=== PATIENT | female | born 1950 | race Caucasian/White ===

== ENCOUNTER 2018-08-15 06:23 | Observation (INO) | payer MEDICARE ==
[2018-08-15] MEDS ORDERED: Sodium Chloride 0.9% 10 ML ONE (06:32)
[2018-08-15 07:26] LABS: #Basophils 0.1 thou/uL (0.0-0.2); #Eosinphils 0.3 thou/uL (0.0-0.7); #Lymphocytes 3.3 thou/uL (1.20-3.40); #Monocytes 0.7 thou/uL (0.11-0.59); #Neutrophils 4.2 thou/uL (1.40-6.50); %Basophils 0.8 % (0.0-1.0); %Eosinophils 3.6 % (0.0-10.0); %Lymphocytes 38.6 % (21.0-51.0); %Monocytes 7.9 % (0.0-10.0); Hemoglobin 13.8 g/dL (12.0-16.0); Mean Corpuscular HGB CONC 33.5 g/dL (32.0-36.0); Mean Corpuscular Volume 89.5 fL (78.0-98.0); Platelet Count 208 thou/uL (130-400); RBC Distribution Width 12.2 % (11.5-14.5); Red Blood Cell (RBC) Count 4.62 mill/uL (4.20-5.40); White Blood Cell (WBC) Count 8.6 thou/uL (4.8-10.8)
[2018-08-15 07:45] LABS: Anion Gap 14 mmol/L (10-20); BUN (Urea Nitrogen) 14 mg/dL (9.8-20.1); Calc. Creatinine Clearance 80 mL/min (70-130); Calcium 10.1 mg/dL (7.8-10.44); Carbon Dioxide 28 mmol/L (23-31); Chloride 103 mmol/L (98-107); Estimated GFR-MDRD 69; Glucose 117 mg/dL (80-115); Potassium 4.9 mmol/L (3.5-5.1); Sodium 140 mmol/L (136-145)
[2018-08-15] MEDS ORDERED: Fentanyl 100 MCG/2 ML VIAL ONE ×4 (08:38→11:18)
[2018-08-15] MEDS ORDERED: Promethazine HCl 25 MG/ML VIAL SLOW IVP PRN (09:53)
[2018-08-15] MEDS ORDERED: Ondansetron HCl/PF 4 MG/2 ML Vial IVP PRN (09:53)
[2018-08-15] MEDS ORDERED: Promethazine HCl 25 MG/ML VIAL IM PRN (09:53)
[2018-08-15] MEDS ORDERED: Ondansetron PF 4 MG/2 ML Vial ONE (12:18)
[2018-08-15] MEDS ORDERED: Lidocaine 1% PF 5 ML VIAL ONE (12:18)
[2018-08-15] MEDS ORDERED: Rocuronium Bromide 10 MG/ML (10ML VIAL) ONE (12:18)
[2018-08-15] MEDS ORDERED: Glycopyrrolate 0.2 MG/ML 5 ML SYRINGE ONE (12:18)
[2018-08-15] MEDS ORDERED: Ketorolac Tromethamine 30 MG/ML VIAL ONE (12:18)
[2018-08-15] MEDS ORDERED: PROPOFOL 200 MG/20 ML VIAL ONE (12:18)
[2018-08-15] MEDS ORDERED: Dexamethasone 20 MG/5 ML VIAL ONE (12:18)
[2018-08-15] MEDS ORDERED: PHENYLEPHRINE-NS 100 MCG/ML 10 ML SYRINGE ONE (12:18)
--- NOTE | 2018-08-15 12:57 | OP ---
DATE OF PROCEDURE: 08/15/2018 SPECIAL EQUIPMENT TECHNICIAN: Elias Lopez PA-C. PROCEDURES PERFORMED: Anterior cervical diskectomy, C5-C6 and C6-C7, interbody arthrodesis, intervertebral biomechanical device, local morselized autograft, demineralized bone matrix, anterior titanium instrumentation, C5-C7. DESCRIPTION OF PROCEDURE: The patient was brought to the operating room and intubated. She was positioned supine with the head in modest extension on a gel-filled donut. An incision was made in the right precervical region and dissected medial to the sternocleidomastoid muscle, identified the anterior cervical spinal, and the level was confirmed by x-ray. There were fairly extensive and dramatic anterior osteophytes at both C5-C6 and C6-C7 that were debrided. The disks themselves were incised and removed and complete decompression was achieved. The bony endplates were decorticated for the purpose of arthrodesis and appropriate-sized intervertebral biomechanical PEEK device was brought into the field and filled with demineralized bone matrix and local morselized autograft and tapped in place securely at C5-C6 and C6-C7. Next, an anterior plate was brought into the field and secured at C5, C6, and C7 using two 14-mm screws at each level. The wound was then extensively irrigated and maximum hemostasis was secured. The wound was closed in anatomic layers over drain. Job ID: [id number]
[2018-08-15] MEDS ORDERED: Milk Of Magnesia 30 ML UDCUP PO PRN (14:23)
[2018-08-15] MEDS ORDERED: Acetaminophen 650 MG Suppository PR PRN (14:23)
[2018-08-15] MEDS ORDERED: diphenhydrAMINE 50 MG/ML VIAL IVP PRN (14:23)
[2018-08-15] MEDS ORDERED: Acetaminophen 325 MG TAB PO PRN (14:23)
[2018-08-15] MEDS ORDERED: diphenhydrAMINE 25 MG CAP PO PRN (14:23)
[2018-08-15] MEDS ORDERED: Mag-Al 1200 mg/1200 mg/30 ML UDCUP PO PRN (14:23)
[2018-08-15] MEDS ORDERED: Ondansetron PF 4 MG/2 ML Vial IVP PRN (14:24)
[2018-08-15 14:33] VITALS: BMI 31.4
[2018-08-15] MEDS ORDERED: Morphine 4 MG/ML VIAL SLOW IVP PRN ×2 (14:54→14:56)
[2018-08-15] MEDS ORDERED: HYDROcodone/Acetaminophen 10/325 mg Tablet PO PRN ×2 (14:54)
[2018-08-15] MEDS ORDERED: DULAGLUTIDE (TRULICITY) SC SCH (15:15)
[2018-08-15] MEDS: Sodium Chloride 0.9% 1,000 ML IV SCH (15:56)
[2018-08-15] MEDS: CEFAZOLIN 2 GM in Premix Bag 1 BAG IVPB SCH (15:56)
[2018-08-15] MEDS: tiZANidine HCl 4 MG TAB PO PRN ×2 (16:11→22:18)
--- NOTE | 2018-08-15 16:14 | EKG ---
Test Reason : PREOP Blood Pressure : / mmHG Vent. Rate : 066 BPM Atrial Rate : 066 BPM P-R Int : 190 ms QRS Dur : 092 ms QT Int : 418 ms P-R-T Axes : 062 021 033 degrees QTc Int : 438 ms Normal sinus rhythm Normal ECG No previous ECGs available Confirmed by DR. Brian NORIEGA ([id number]) on 08/15/2018 4:13:39 PM Referred By: JOJO Confirmed By:DR. Brian NORIEGA
[2018-08-15] MEDS: Metoprolol Tartrate 25 MG TAB PO SCH (20:12)
[2018-08-15] MEDS: Lisinopril 20 MG TAB PO SCH (20:12)
[2018-08-15] MEDS ORDERED: Dextrose 5% in Water 1,000 ML IV PRN (21:28)
[2018-08-15] MEDS ORDERED: Insulin Regular 300 UNITS/3 ML VIAL SC PRN (21:28)
[2018-08-15] MEDS ORDERED: Dextrose 50% Abboject 50 ML SYRINGE SLOW IVP PRN (21:28)
[2018-08-16] MEDS: CEFAZOLIN 2 GM in Premix Bag 1 BAG IVPB SCH ×3 (00:08→09:51)
[2018-08-16] MEDS: tiZANidine HCl 4 MG TAB PO PRN ×2 (04:15→09:31)
[2018-08-16] MEDS: Sodium Chloride 0.9% 1,000 ML IV SCH (04:52)
[2018-08-16] MEDS ORDERED: DAPAGLIFLOZIN PROPANEDIOL 5 MG PO SCH (09:00)
[2018-08-16] MEDS ORDERED: Magnesium Oxide 400 MG TAB PO SCH (09:00)
[2018-08-16] MEDS ORDERED: Stress 600 With Zinc 1 TAB PO SCH (09:00)
[2018-08-16] MEDS ORDERED: Rosuvastatin 5 MG TAB PO SCH (09:00)
[2018-08-16] MEDS: Metoprolol Tartrate 25 MG TAB PO SCH (09:27)
[2018-08-16] MEDS: Lisinopril 20 MG TAB PO SCH (09:27)
[2018-08-16 11:04] VITALS: BP 125/74; TEMP 97.6
--- NOTE | 2018-08-17 04:03 | DIS ---
DATE OF ADMISSION: 08/15/2018 DATE OF DISCHARGE: 08/16/2018 ATTENDING PHYSICIAN: Dr. Jona Patterson. HOSPITAL COURSE: The patient is a 67-year-old female status post C5-C7 ACDF. Following her surgery, she was transitioned to the Med-Surg, where her pain was well controlled p.o. medications, she was tolerating a regular diet, and voiding appropriately. The patient did have MARLENE drain placed intraoperatively, but only had 20 mL out over the 1st night. I am visiting the patient in the morning at the bedside. She is awake, alert, in no acute distress. She has free active range of motion of all extremities, 5/5 strength throughout. Sensation is intact to light touch. Incision is dry and soft. We will plan to dismiss the patient home. Discussed home care precautions. We will follow up in 2 weeks. Job ID: [id number]
== END 2018-08-16 12:12 | disposition home or self-care (01) ==
LOC: SDC 06:23 → SURG A 13:51
PROVIDERS: ADMIT Neurological Surgery; ATTEND Neurological Surgery
PROC: 0RG2070 Fusion of 2 or more Cervical Vertebral Joints with Autologous Tissue Substitute, Anterior Approach, Anterior Column, Open Approach (ICD-10-PCS; principal; 2018-08-15)
PROC: 0RT30ZZ Resection of Cervical Vertebral Disc, Open Approach (ICD-10-PCS; 2018-08-15)
DX: M50.122 Cervical disc disorder at C5-C6 level with radiculopathy (principal); E78.5 Hyperlipidemia, unspecified; I25.10 Atherosclerotic heart disease of native coronary artery without angina pectoris; E11.9 Type 2 diabetes mellitus without complications; I10 Essential (primary) hypertension; Z88.5 Allergy status to narcotic agent; Z88.6 Allergy status to analgesic agent; Z79.02 Long term (current) use of antithrombotics/antiplatelets; Z79.82 Long term (current) use of aspirin; Z79.899 Other long term (current) drug therapy
CPT/HCPCS: 20930; 20936; 22551; 22552; 22853 ×2; 76000; 80048; 82962 ×2; 85025; 93005; 96365; 96366; 96374; 97139; C1713 ×2; C1776; G0378; 36415; 36416; 93010; J0131; J1100; J1200; J1885; J2001; J2405; J2704; J3010; J3490

== ENCOUNTER 2018-08-29 15:29 | Outpatient (CLI) | payer MEDICARE ==
--- NOTE | 2018-08-29 16:05 | RAD ---
CERVICAL SPINE SERIES 3 VIEWS: HISTORY: Neck pain. FINDINGS: The vertebral bodies are normal in height. There is disk narrowing at C3-4. Anterior cervical fusio n with plate and screws placed from C5 to C7. Markers of disk implants are within the confines of th e disk level. IMPRESSION: Arthritic changes and postop changes of the spine. POS: ISABELLE
== END 2018-08-29 15:30 | disposition home or self-care (01) ==
LOC: TBSIIMAG 15:29
PROVIDERS: ATTEND Neurological Surgery
DX: M54.2 Cervicalgia (principal); M47.812 Spondylosis without myelopathy or radiculopathy, cervical region; Z98.1 Arthrodesis status
CPT/HCPCS: 72040

== ENCOUNTER 2018-10-10 14:15 | Outpatient (CLI) | payer MEDICARE ==
--- NOTE | 2018-10-10 15:36 | RAD ---
CERVICAL SPINE AP AND LATERAL STANDARD: HISTORY: M50.30, M54.2. Surgical followup. COMPARISON: Radiograph 08/29/2018. FINDINGS: ACDF hardware at C4-C6. No hardware complication. No migration of the diskectomy spacers. There is degenerative C3 over C4 grade I anterolisthesis. Moderate narrowing of the C3-4 and C4-5 disk space s. IMPRESSION: Satisfactory postoperative appearance. POS: ALHAJI
== END 2018-10-10 14:16 | disposition home or self-care (01) ==
LOC: TBSIIMAG 14:15
PROVIDERS: ATTEND Neurological Surgery
DX: M50.30 Other cervical disc degeneration, unspecified cervical region (principal); Z98.890 Other specified postprocedural states
CPT/HCPCS: 72040